=== PATIENT | female | born 1950 | race Caucasian/White ===

== ENCOUNTER 2017-09-06 05:04 | Inpatient (IN) ==
[2017-08-31 16:24] LABS: Basophils # (Auto) 0 K/mcL (0.0-0.3); Basophils % (Auto) 0.2 % (0.0-2.0); Eosinophils # (Auto) 0.1 K/mcL (0.0-0.7); Eosinophils % (Auto) 2.2 % (0.0-7.0); Granulocytes % (Auto) 63.6 % (38.0-78.0); Lymphocytes # (Auto) 1.1 K/mcL (1.5-4.8); Lymphocytes % (Auto) 25.3 % (15.5-49.0); Mean Cell Volume 99.6 fL (80.0-100.0); Mean Corpuscular HGB Conc 34.8 g/dL (31.0-36.0); Mean Corpuscular Hemoglobin 34.7 pg (26.0-34.0); Monocytes # (Auto) 0.4 K/mcL (0.1-0.9); Monocytes % (Auto) 8.7 % (1.0-12.0); Platelet Count 171 K/mcL (140-440); Red Cell Distribution Width 13.6 % (11.5-14.5)
[2017-08-31 16:59] LABS: Blood Urea Nitrogen 16 mg/dl (8-23)
[~2017-09-06 05:04] MED LIST: CELECOXIB 200 MG CAPSULE PO SCH; PREGABALIN 150 MG CAPSULE PO SCH; ceFAZolin 1 GM VIAL IV SCH; oxyCODONE 10 MG TAB.ER.12H PO SCH
[2017-09-06] MEDS ORDERED: KETOROLAC 30 MG, ROPIVACAINE HCL/PF 49.5 ML, EPINEPHrine 0.5 MG, 0.9 % SODIUM CHLORIDE ... IJ SCH (06:30)
[2017-09-06] MEDS ORDERED: IPRATROPIUM/ALBUTEROL 3 ML AMPUL.NEB NEB ONE (07:07)
[2017-09-06] MEDS ORDERED: ROPIVACAINE HCL/PF 20 ML VIAL IJ ONE (07:50)
[2017-09-06] MEDS ORDERED: PROPOFOL 200 MG/20 ML VIAL IV ONE (07:50)
[2017-09-06] MEDS ORDERED: ESMOLOL 100 MG/10 ML VIAL IV ONE (07:50)
[2017-09-06] MEDS ORDERED: KETAMINE 100 MG/ML ML IV ONE (07:50)
[2017-09-06] MEDS ORDERED: PHENYLEPHRINE 10 MG/ML VIAL IV ONE (07:50)
[2017-09-06] MEDS ORDERED: MIDAZOLAM 5 MG/5 ML VIAL IV ONE (07:50)
[2017-09-06] MEDS ORDERED: SUCCINYLCHOLINE 20 MG/ML ML IV ONE (07:50)
[2017-09-06] MEDS ORDERED: TRANEXAMIC ACID 1,000 MG/10 ML VIAL IV ONE (07:50)
[2017-09-06] MEDS ORDERED: DEXAMETHASONE 10 MG/ML VIAL IV ONE (07:50)
[2017-09-06] MEDS ORDERED: LIDOCAINE HCL/PF 100 MG/5 ML SYRINGE IV ONE (07:50)
[2017-09-06] MEDS ORDERED: METOPROLOL TARTRATE 5 MG/5 ML VIAL IV PRN (09:05)
[2017-09-06] MEDS ORDERED: KETOROLAC 30 MG/ML VIAL IV PRN (09:05)
[2017-09-06] MEDS ORDERED: PROMETHAZINE 25 MG/ML VIAL IV PRN (09:05)
[2017-09-06] MEDS ORDERED: ONDANSETRON 4 MG/2 ML VIAL IV PRN ×2 (09:05→09:40)
[2017-09-06] MEDS ORDERED: NALOXONE HCL 0.4 MG/ML VIAL IV PRN (09:05)
[2017-09-06] MEDS ORDERED: MEPERIDINE 25 MG/ML SYRINGE IV PRN (09:05)
[2017-09-06] MEDS ORDERED: ATROPINE SULFATE 0.4 MG/ML VIAL IV PRN (09:05)
[2017-09-06] MEDS ORDERED: METHOCARBAMOL 1,000 MG/10 ML VIAL IV PRN (09:05)
[2017-09-06] MEDS ORDERED: ePHEDrine 50 MG/ML AMPUL IV PRN (09:05)
[2017-09-06] MEDS ORDERED: IPRATROPIUM/ALBUTEROL 3 ML AMPUL.NEB NEB PRN (09:05)
[2017-09-06] MEDS ORDERED: fentaNYL 100 MCG/2 ML VIAL IV PRN (09:05)
[2017-09-06] MEDS ORDERED: diphenhydrAMINE 50 MG/ML VIAL IV PRN (09:05)
[2017-09-06] MEDS ORDERED: FLUMAZENIL 0.1 MG/ML ML IV PRN (09:05)
[2017-09-06] MEDS ORDERED: LACTATED RINGERS 1,000 ML IV SCH (09:15)
[2017-09-06] MEDS ORDERED: BISACODYL 10 MG SUPP.RECT PR PRN (09:40)
[2017-09-06] MEDS ORDERED: TRANEXAMIC ACID 1,000 MG/10 ML VIAL IV SCH (09:40)
[2017-09-06] MEDS ORDERED: DEXTROSE 31 GM ORAL.SUSP PO PRN (09:40)
[2017-09-06] MEDS ORDERED: DEXTROSE 50% 50 ML VIAL IV PRN (09:40)
[2017-09-06] MEDS ORDERED: MAGNESIUM HYDROXIDE 30 ML ORAL.SUSP PO PRN (09:40)
[2017-09-06] MEDS ORDERED: BENZOCAINE/MENTHOL 1 LOZENGE PO PRN (09:40)
[2017-09-06] MEDS ORDERED: POLYETHYLENE GLYCOL 3350 17 GM PACKET PO PRN (09:40)
[2017-09-06] MEDS ORDERED: FLEETS ADULT ENEMA PR PRN (09:40)
--- NOTE | 2017-09-06 09:40 | Brief Operative Note ---
Date of procedure: 09/06/17 Pre-op diagnosis: Left knee severe DJD Post-op diagnosis: same Procedure: Left robotic assisted total knee arthroplasty Grafts/Implants: Yes ([employer] [place] 4 CR femur, 4 tibia, 11 insert, 33 patella) Anesthesia: spinal, GLMA Findings: severe arthritis Complications: none Surgeon: Basil Diaz Systematic Theology Professor: Eduardo Webster Estimated blood loss (cc): 30 Specimens Removed/Pathology: none sent Condition: stable Disposition: PACU
[2017-09-06] MEDS ORDERED: TAMSULOSIN 0.4 MG CAPSULE PO PRN (09:45)
--- NOTE | 2017-09-06 10:28 | Operative Note ---
DATE OF OPERATION: 09/06/2017 PREOPERATIVE DIAGNOSIS: Left knee severe osteoarthritis. POSTOPERATIVE DIAGNOSIS: Left knee severe osteoarthritis. PROCEDURE PERFORMED: Left robotic-assisted total knee arthroplasty using a Bettye Triathlon size 4 cruciate retaining femoral component, size 4 tibial baseplate, 11 mm X3 tibial insert with a 33 mm patellar button. SURGEON: Basil Diaz MD. [employer] INSPECTOR: Henrry Webster PA-C. ANESTHESIA: Spinal plus general. DRAINS: None. SPECIMENS: Bone cuts, which were discarded. BLOOD LOSS: Less than 30 mL COMPLICATIONS: None. POSTOPERATIVE CONDITION: Stable. INDICATIONS FOR SURGERY: This is a 67-year-old female who has had longstanding progressive worsening severe left knee pain. Radiographs showed severe [id number] tricompartmental osteoarthritis. FINDINGS AT SURGERY: Severe tricompartmental osteoarthritis. PROCEDURE IN DETAIL: The patient had been seen preoperatively. Informed consent had been obtained after discussion of risks, benefits of surgery. Risks including, but not limited to, bleeding, possibly requiring transfusion; infection, possibly requiring implant removal and prolonged IV antibiotics; injury to nerves, blood vessels other surrounding structures; anesthetic risks; incomplete or no resolution of symptoms; stiffness, pain, swelling, instability; DVT and pulmonary embolus risks; and the possibility of needing further revision surgery. She understood these risks and wished to proceed. Correct operative site was marked and the patient was given spinal anesthesia and then taken to the operating room, LMA general given. The left lower extremity was carefully prepped and draped in normal sterile fashion and a timeout was performed verifying patient name, operative site, and plan. Esmarch was used to exsanguinate the extremity and tourniquet was inflated to 350 mmHg. A midline incision was made with a scalpel through skin and subcutaneous fat which was quite thick. We then used IrriSept and then made a medial parapatellar arthrotomy. Subperiosteal exposure was done of the anterior medial tibia and the distal anterior cortex of the femur. Retropatellar fat pad, ACL and anterior horns of the menisci were all removed. Two stab incisions were made over the femur and two over the tibia and then two bicortical pins placed in each. The arrays were connected. We placed our femoral and tibial checkpoints. Hip center of rotation was checked as well as medial and lateral malleoli with the green probe. We did our double checks of the femoral and tibial checkpoints and then did our cartilage mapping with the blue probe. We then removed osteophytes. Flexion, extension gaps were checked. We ended up adding 2 degrees more of varus on the tibia and one on the femur and an extra degree of external rotation. This gave us 17 mm gaps medially flexion and extension and 18 mm gaps laterally flexion and extension. We then went ahead and used the robotic assistance to do our bone cut. The tibia was externally rotated as bone coverage would allow. We pinned the tibial trial in place and did our boss reamer and keel punch. The posterior horns of the menisci were removed. Femur was elevated and the posterior osteophytes removed with a curved osteotome and curved curet. We then placed a femoral trial, pinned this into place and drilled our peg holes, a 9 insert was placed and the knee was taken into extension. We then prepared our patella freehand. It measured 22 mm pre-resection and post-resection measured 13 mm. We then placed a 33 medialized maximally and drilled our holes. Trial was placed. We checked our thickness and it was 22 again. We checked our patellar tracking. It did not want to track lateral. We went ahead and removed our trial components while definitive implants were opened. We irrigated the joint with IrriSept. After a minute pulse lavaged copiously with saline. Several holes were drilled in the tibia to aid in cement interdigitation and then a CO2 gun was used to clean and dry the cancellous bone surfaces. Antibiotic cement was mixed. We cemented the tibia followed by the femur. A 9 insert trial was placed and cement was removed. The knee was taken into extension and the patella was cemented. While cement was hardening, we went ahead and filled the joint with IrriSept and then injected pain cocktail into the subcutaneous and pericapsular tissues. Once cement had fully hardened, we checked our full extension. We were almost into hyperextension, so I went ahead and trialed an 11. This seemed to fit better, so we opened an 11 insert. We removed the trial insert. The posterior medial capsule was injected and then IrriSept irrigated, and then we impacted the 11 insert. The patella did not want to track lateral so a lateral retinacular release was done with Bovie cautery starting at the superior pole about 1 cm lateral and taking this down to the tibia. This aided significantly in patellar tracking. We then irrigated with pulse lavage saline and the knee was taken to about 45 degrees of flexion. Checkpoints were removed. We went ahead and used #2 FiberWire for [id number] around the superior quadrant and #1 Vicryl [id number]-pmyaia around the inferior quadrant of the patella, running #1 Vicryl for patellar tendon and quad tendon. Final IrriSept irrigation was done, after a minute final saline irrigation and then a deep fat stitch was closed with #1 Vicryl and then 2-0 Monocryl for subcutaneous and joao for skin. [place] were used for the stab incisions on the femur and tibia and then Xeroform, sterile dressings were applied. Tourniquet was released. The patient was awakened, extubated, and transferred to recovery in stable condition. [email or web address] Job ID: [id number] Doc ID: [id number] Basil Diaz MD
--- NOTE | 2017-09-06 10:42 | XRay Report ---
CLINICAL INFORMATION: Postsurgical follow-up TECHNIQUE: AP and crosstable lateral left knee COMPARISON: None. FINDINGS: Status post left total knee arthroplasty. Prosthetic components are in anatomic positions. Postsurgical soft tissue and intra-articular gas. There are skin joao anteriorly. IMPRESSION: Status post left total knee arthroplasty Interpreted and Authenticated by: Fede Smith 09/06/17
[2017-09-06] MEDS: HYDROmorphone 2 MG/ML VIAL IV PRN ×2 (11:15→19:39)
[2017-09-06] MEDS: 0.9 % SODIUM CHLORIDE 1,000 ML IV SCH ×2 (11:15→22:53)
[2017-09-06] MEDS: HYDROcodone/APAP 10/325MG TABLET PO PRN ×3 (13:38→23:10)
[2017-09-06] MEDS: INSULIN LISPRO 1 UNIT/0.01 ML UNIT SQ SCH ×3 (13:41→20:51)
[2017-09-06] MEDS: 0.9 % SODIUM CHLORIDE 10 ML SYRINGE IV SCH ×2 (13:52→20:51)
[2017-09-06] MEDS: ceFAZolin 1 GM VIAL IV SCH ×2 (15:15→23:10)
[2017-09-06] MEDS: metFORMIN 500 MG TABLET PO SCH (17:35)
[2017-09-06] MEDS ORDERED: SENNOSIDES 1 TABLET PO SCH (21:00)
[2017-09-06] MEDS ORDERED: LISINOPRIL 5 MG TABLET PO SCH (21:00)
[2017-09-06] MEDS ORDERED: PHENYTOIN 50 MG TAB.CHEW PO SCH (21:00)
[2017-09-06] MEDS ORDERED: LYSINE HCL 500 MG PO SCH (21:00)
[2017-09-06] MEDS ORDERED: ATORVASTATIN 20 MG TABLET PO SCH (21:00)
[2017-09-06] MEDS ORDERED: VITAMIN D3 1,000 UNIT TABLET PO SCH (21:00)
[2017-09-06] MEDS ORDERED: PHENYTOIN SOD 100 MG CAPSULE PO SCH (21:00)
[2017-09-06] MEDS: DOCUSATE SODIUM 100 MG CAPSULE PO SCH (21:03)
[2017-09-06] MEDS: ASPIRIN 325 MG ENTERIC COATED TABLET PO SCH (21:04)
[2017-09-06] MEDS: PREGABALIN 150 MG CAPSULE PO SCH (21:06)
[2017-09-06] MEDS: MULTIVIT,THER IRON,CA,FA & MIN 1 TABLET PO SCH (21:06)
[2017-09-07] MEDS: HYDROmorphone 2 MG/ML VIAL IV PRN (03:31)
[2017-09-07] MEDS: HYDROcodone/APAP 10/325MG TABLET PO PRN ×3 (04:21→12:57)
[2017-09-07] MEDS: 0.9 % SODIUM CHLORIDE 1,000 ML IV SCH (05:47)
[2017-09-07] MEDS: 0.9 % SODIUM CHLORIDE 10 ML SYRINGE IV SCH ×2 (05:47→09:53)
[2017-09-07] MEDS ORDERED: OMEPRAZOLE 20 MG CAPSULE PO SCH (07:30)
--- NOTE | 2017-09-07 07:50 | Discharge Summary ---
Providers - Providers Patient information: Note initiated : 09/07/17 at 7:46 am Service Date, if different from initiated Date: [] Patient: Dyana Mckay 67 y/o F admitted on 09/06/17 for Left Total Knee Arthroplasty - Ivan. Chief Complaint: [] Discharge date: 09/07/17 Hospitalization Hospital course: Pt was admitted for a TKA. She underwent the procedure on the day of admission. Was transferred to the floor for IV pain meds, IV abx, and PT. ASA was given for DVT prophylaxis. Will f/u at [facility] in 2 weeks. Discharge diagnosis: L knee OA Ortho Discharge - TKA - Patient Instructions Diet: Regular Diet Activity: activity as tolerated, weight bearing as tolerated Total Knee Protocol: For Total Knee: Start ROM RONALD with stationary bike or rocking chair. Work on gaining full extension of knee. Posterior dislocation precautions provided. Hip abductor strengthening and gait training instructions provided. Apply Cryocuff as instructed. Dressing Care: May shower in 2 days - Follow Up Plan Follow Up Appointments: Basil Diaz MD [Physician] - 09/21/17 11:20 am Disposition: Home, Self-Care Prognosis: Good Rehab Potential: Good Overall status at discharge: patient is progressing back to baseline - Orders For Discharge Prescriptions: Aspirin [Ecotrin] 325 mg PO BID #30 tab.ec HYDROcodone/APAP 10/325MG [[place] 10-325Mg] 1 - 2 tab PO Q4HP PRN #90 tab PRN Reason: Pain Level 3-6 Pending Studies Resuscitation Status Full Code Diet Consistent Carbohydrate Diet Start MonSep 06 Lunch Hydrocodone Bitart/Acetaminophen ([place] 10/325mg) 0 tab PO Q4HP PRN PRN Reason: PAIN LEVEL 3-6 Last Admin: 09/07/17 04:21 Dose: 2 tab Admin: 09/06/17 23:10 Dose: 2 tab Admin: 09/06/17 17:35 Dose: 2 tab Admin: 09/06/17 13:38 Dose: 2 tab Aspirin (Ecotrin) 325 mg PO BID [facility] Last Admin: 09/06/17 21:04 Dose: 325 mg Atorvastatin Calcium (Lipitor) 40 mg PO HS [facility] Last Admin: 09/06/17 21:05 Dose: 40 mg Diagnostic Test (Pha) (Accu-Chek) 1 each FS ACHS [facility] Last Admin: 09/06/17 20:49 Dose: 1 each Admin: 09/06/17 17:37 Dose: 1 each Admin: 09/06/17 11:21 Dose: 1 each Docusate Sodium (Colace) 100 mg PO BID [facility] Last Admin: 09/06/17 21:03 Dose: 100 mg Hydromorphone HCl (Dilaudid) 0 mg IV Q2HP PRN PRN Reason: PAIN LEVEL > 6 Last Admin: 09/07/17 03:31 Dose: 0.5 mg Admin: 09/06/17 19:39 Dose: 0.5 mg Admin: 09/06/17 11:15 Dose: 1 mg Sodium Chloride (Sodium Chloride 0.9%) 1,000 mls @ 100 mls/hr IV .Q10H [facility] Last Admin: 09/07/17 05:47 Dose: Not Given Admin: 09/06/17 22:53 Dose: 100 mls/hr Infusion: 09/06/17 21:15 Dose: 100 mls/hr Admin: 09/06/17 11:15 Dose: 100 mls/hr Insulin Human Lispro (Humalog) 0 unit SQ ACHS [facility] PRN Reason: Protocol Last Admin: 09/06/17 20:51 Dose: Not Given Admin: 09/06/17 17:39 Dose: Not Given Admin: 09/06/17 13:41 Dose: 6 unit Iron Carb/Multivit/Farm Agent/Folic Acid (Multivitamin W/Minerals) 1 tab PO BID [facility] Last Admin: 09/06/17 21:06 Dose: 1 tab Lisinopril (Zestril) 5 mg PO HS [facility] Last Admin: 09/06/17 21:08 Dose: 5 mg Metformin HCl (Glucophage) 500 mg PO BIDCC [facility] Last Admin: 09/06/17 17:35 Dose: 500 mg Phenytoin (Dilantin) 50 mg PO HS [facility] Last Admin: 09/06/17 21:03 Dose: 50 mg Phenytoin Sodium (Dilantin) 400 mg PO HS [facility] Last Admin: 09/06/17 21:04 Dose: 400 mg Pregabalin (Lyrica) 150 mg PO BID [facility] Last Admin: 09/06/17 21:06 Dose: 150 mg Senna (Senokot) 2 tab PO HS [facility] Last Admin: 03/21/18 21:06 Dose: 2 tab Sodium Chloride (Saline Flush) 10 ml IV Q8 [facility] Last Admin: 09/07/17 05:47 Dose: Not Given Admin: 09/06/17 20:51 Dose: Not Given Admin: 09/06/17 13:52 Dose: Not Given Vitamin D (Vitamin D3) 2,000 unit PO HS [facility] Last Admin: 09/06/17 21:07 Dose: 2,000 unit Shift Summary 09/07/17 04:39 Shift Summary by Peggy Otto&Fly4. VSS. 18 gauge to RFA with NS at 100 ml/hr. Up with FWW and SBA. Patient refused to ambulate in hallway or to bathroom; stated she was too tired and in too much pain. Insisted on using bedside commode. Continued to encourage patient to ambulate prior to bedtime with no success. Personal CPAP in place while asleep. Last PVR was 54ml. Will update at bedside. Initialized on 09/07/17 04:39 - END OF NOTE
[2017-09-07] MEDS: metFORMIN 500 MG TABLET PO SCH (08:19)
[2017-09-07] MEDS: INSULIN LISPRO 1 UNIT/0.01 ML UNIT SQ SCH ×2 (08:24→12:15)
[2017-09-07] MEDS ORDERED: HYDROCHLOROTHIAZIDE 25 MG TABLET PO SCH (09:00)
[2017-09-07] MEDS ORDERED: ATORVASTATIN 20 MG TABLET PO SCH (09:00)
[2017-09-07] MEDS ORDERED: FLUTICASONE PROPIONATE SPRAY.NAS NS SCH (09:00)
[2017-09-07] MEDS ORDERED: SENNOSIDES/DOCUSATE SODIUM 1 TAB TABLET PO SCH (09:00)
[2017-09-07] MEDS ORDERED: CYANOCOBALAMIN (VITAMIN B-12) 500 MCG TABLET PO SCH (09:00)
[2017-09-07] MEDS ORDERED: CRANBERRY 400 MG PO SCH (09:00)
[2017-09-07] MEDS ORDERED: FOLIC ACID 1 MG TABLET PO SCH (09:00)
[2017-09-07] MEDS ORDERED: CALCIUM CARBONATE 500 MG TAB.CHEW CHEWED SCH (09:00)
[2017-09-07] MEDS: ASPIRIN 325 MG ENTERIC COATED TABLET PO SCH (09:39)
[2017-09-07] MEDS: PREGABALIN 150 MG CAPSULE PO SCH (09:39)
[2017-09-07] MEDS: DOCUSATE SODIUM 100 MG CAPSULE PO SCH (09:40)
[2017-09-07] MEDS: MULTIVIT,THER IRON,CA,FA & MIN 1 TABLET PO SCH (09:40)
== END 2017-09-07 15:35 | disposition home or self-care (01) | DRG 470 ==
LOC: MERGE 05:04 → MEDSUR 05:04 → EDSTATUS 07:30
PROVIDERS: ADMIT Orthopaedic Surgery; ATTEND Orthopaedic Surgery